=== PATIENT | male | born 1985 | race Caucasian/White ===

== ENCOUNTER → 2017-06-11 | Outpatient (CLI) | payer OTHER ==
[~2017-06-11] MED LIST: BACTRIM DS 8001 TA1 PO; BROMFED DM COU118 ML PO; FLONASE 50 MCG16 GM; NOMEDS; PREDNISONE 20MG20 MG PO
--- NOTE | 2017-06-12 06:36 | RADIOLOGY REPORT PS360 ---
MRI-L-SPINE W/O, MRI-3D RENDERING/MYELOGRAM HISTORY: LOW BACK PAIN ORDERING PHYSICIAN: Bar Okeefe MD PATIENT AGE: 32 years COMPARISON: Radiograph 01/03/2017 TECHNIQUE: Standard multiplanar multiecho sequences are performed without contrast. 3-D MIP and myelographic images are also rendered and reviewed FINDINGS: The spinal cord ends at the T12-L1 level. There is normal alignment. L1-L2, L2-L3, L3-L4 and L4-L5: Unremarkable appearance. L5-S1: Minimal bulging disc with small central disc protrusion very minimal eccentric to the left abutting the anteromedial aspect of the left S1 nerve root. No extruded herniated disc or canal stenosis. IMPRESSION: Minimal bulging disc with small central disc protrusion at L5-S1 very slightly eccentric toward the left abutting the anteromedial aspect of the left S1 nerve root without displacement
== END ==
LOC: RAD 06-04 09:30
DX: M54.5 Low back pain (principal)

== ENCOUNTER 2017-06-21 09:21 | Emergency (ER) | payer OTHER ==
[~2017-06-21] VITALS: Ht 182.9 cm; Wt 102.1 kg
[~2017-06-21 09:21] MED LIST changes: -BROMFED DM COU118 ML PO; -FLONASE 50 MCG16 GM; -PREDNISONE 20MG20 MG PO
[2017-06-21] MEDS ORDERED: PREDNISONE 20MG20 MG PO (09:48)
[2017-06-21] MEDS ORDERED: BROMFED DM COU118 ML PO (09:48)
[2017-06-21] MEDS ORDERED: FLONASE 50 MCG16 GM (09:48)
--- NOTE | 2017-06-21 09:49 | Urgent Treatment Center Report ---
History of Present Issue Date/Time Seen by Provider 06/21/17 0939 Visit Reason Pt arrived:Walked Presenting Problem:PT C/O FEVER, RUNNY NOSE, SORE THROAT X1 WEEK Location if Accident: Onset of symptoms date/time:/ or onset unknown for:MEDICAL HX UNKNOWN Have you (or family members/close friends) recently traveled outside the [place]? N If Yes, where/when: Have you had exposure to infectious disease within the past month? TB? Other? Specify: c/o not feeling well x 1 week. Started w/ sore throat and fever exactly one week ago. Sore throat improved. Fever resolved. PND, cough and congestion primarily the worse now, especially in morning. No known sick contacts. Denies SOA, wheezing. "just a nagging cough". nonproductive. Source patient Exam Limitations no limitations ALLERGIES Coded Allergies: No Known Allergies (01/24/17) Home Medications Reported Medications No Home Medications (NO HOME MEDICATIONS) History Medical History General CAD? No Angina: No UT: No Hypertension? No Hyperlipidemia? No CHF? No DVT? No PE? No COPD? No Asthma? No Anemia? No GERD? No Gastric ulcers? No GI Bleed? No Hernia? No Thyroid Problems? No Hypothyroidism? No CVA? No Seizures? No Diabetes? No Renal Insuffiency? No UTI? No Stones? No BPH? No GB Disease: No Nephritic Syndrome? No Asplenia? No Hepatitis? No Sickle Cell Disease? No Arthritis? No Migraines? No Cataracts? No Glaucoma? No MRSA? No HIV? No TB? No Anxiety? No Depression? No Cancer? No More? No Immunization HX DT/Tetanus 04/07/12 Surgical Hx Previous Surgery?Y INGROWN TOENAIL Social History Smoking Hx Smoker: Never Smoker Tobacco: No Alcohol Alcohol: No Review of Systems All Other Systems Reviewed and Negative Constitutional see HPI Eyes denies drainage ENT see HPI, nose discharge, nose congestion ("just a little"). denies: ear pain, throat swelling. Respiratory see HPI Cardiovascular denies chest pain Gastrointestinal denies no symptoms reported Musculoskeletal denies joint pain Skin denies rash Psychiatric/Neurological headache (initially, resolved) Physical Exam Vital Signs Vital Signs Date Time Temp Pulse Resp B/P Pulse O2 O2 Flow FiO2 Ox Delivery Rate 06/21 0929 97.9 85 20 142/75 98 General Appearance normal appearance, no apparent distress Eye Exam - bilateral eye normal exam Ear, Nose, Throat escobar EACs normal, TMs w/ fluid present but otherwise unremarkable, PND w/ cobblestoning, mild nasal congestion Neck non-tender, supple Respiratory Status Yes: trachea midline, chest symmetrical, non productive cough. No: respiratory distress, use of accessory muscles, pain on inspiration, pain on expiration. Lung Sounds anterior: lungs clear. posterior: lungs clear. bilateral: lungs clear. Cardiovascular regular rate/rhythm, no peripheral edema, no murmur Neurologic alert, oriented x 3 Mental status normal mood/affect Skin normal color, warm/dry Lymphatic no adenopathy Medical Decision Making LABS/Meds/Orders Pt receiving controlled substance in ED? No Departure Departure Time of Disposition 0946 Disposition DC Home or Self Care(routine) Clinical Impression Primary Impression: Upper respiratory virus Secondary Impressions: Cough Condition STABLE Referrals July Davis APRN (Family) IMMEDIATELY for new or worsening symptoms OR no noticeable improvement over the next 72 hours. 911 for difficulty breathing or swallowing. Patient Instructions DI for Cough -- Adult, DI for Viral Upper Respiratory Infection -- Adult Additional Instructions * No sign of bacterial infection. Likely viral. Virus can take 7-14 days to run their course * Start steroid today. Helps with inflammation therefore, cough and wheezing. Will also help with drainage typically. Rvwd side effects. Pt reports they have taken them before. * Monitor Temp. Seek treatment if temp > 100 restarts. * Encourage fluids, water, gatorade, powerade, pedialyte if infant/toddler/child * warm salt water gargles * warm fluids * sore throat lozenges * sleep elevated * humidifier/vaporizer * flonase 2 sprays each nostril daily but may take 2-3 days to notice improvement with it. * Bromfed may cause drowsiness. Know how it effects you (or your child) before driving, caring for small children, or sending your child to school. No other antihistamines/allergy medications or decongestants while taking bromfed. Discharge Counseling Counseled pt/family regarding diagnosis, medications/RX, home care, follow up needs Prescriptions Current Visit Scripts D-METHORPHAN HB/P-EPD HCL/BPM (Bromfed Dm Cough Syrup) 10 ML PO QIDP PRN cough #240 ML Fluticasone Propionate (Flonase 50 Mcg Nasal [place]) 2 SPRAY NA DAILY #1 BOT Prednisone (Prednisone 20MG) 20 MG PO BID #10 TAB at 0973
[2017-06-21 09:50] VITALS: BP 142/75
--- OUTSIDE RECORDS SUMMARY | 2017-06-22 10:33 | External Medical Summary Rpt | CCD ---
Author Author [facility]AN[facility] Address Unknown Phone Purpose Continuity of Care Document - through 2016
--- OUTSIDE RECORDS SUMMARY | 2017-06-22 10:33 | External Medical Summary Rpt | CCD ---
Author Author [employer] Organization [employer] Address Unknown Phone Unavailable Purpose Continuity of Care Document - through 2016
--- OUTSIDE RECORDS SUMMARY | 2017-06-22 10:33 | External Medical Summary Rpt | CCD ---
Demographics Preferred Language Mauritian Marital Status Unknown Restoration Affiliation Unknown Race Unknown Ethnic Group Unknown Author Author , SHANON CLAUDIO Address Unknown Phone Immunization Unable to retrieve immunization data due to connection failure with Immunization Registry. Please try again later.
--- OUTSIDE RECORDS SUMMARY | 2017-06-22 10:33 | External Medical Summary Rpt ---
Author Author SHANON Soto, [employer] [employer] Organization [employer] Address Unknown Phone Unavailable
--- OUTSIDE RECORDS SUMMARY | 2017-06-22 10:33 | External Medical Summary Rpt | CCD ---
Demographics Preferred Language Zambian Marital Status Unknown Rastafarian Affiliation Unknown Race Unknown Ethnic Group Unknown Author Author , SHANON CLAUDIO Address Unknown Phone Immunization Unable to retrieve immunization data due to connection failure with Immunization Registry. Please try again later.
== END 2017-06-21 09:51 | disposition home or self-care (01) ==
LOC: UTC 09:21
DX: J06.9 Acute upper respiratory infection, unspecified (principal); R05 Cough